=== PATIENT | male | born 1975 | race Caucasian/White ===

== ENCOUNTER 2021-08-24 11:02 | Emergency (ER) | payer BC ==
[2021-08-24 12:53] LABS: HEMOGLOBIN 16.1 gm/dl (14.0-17.5); RED BLOOD COUNT 5.23 M/UL (4.20-5.50); WHITE BLOOD COUNT 13.5 K/UL (4.5-11.0)
[2021-08-24 12:54] LABS: BUN/CREATININE RATIO 11 (0-10)
[2021-08-24] MEDS ORDERED: CYCLOBENZAPRINE10 MG PO (13:21)
== END 2021-08-24 13:50 | disposition home or self-care (01) ==
LOC: ER1 11:02
PROVIDERS: Nurse Practitioner
DX: M54.50 Low back pain, unspecified (principal); G89.29 Other chronic pain; I10 Essential (primary) hypertension; F17.210 Nicotine dependence, cigarettes, uncomplicated; J44.9 Chronic obstructive pulmonary disease, unspecified
CPT/HCPCS: 72131; 80048; 85025; 96374; 96375; 99284; J1100; J1885; J2360